=== PATIENT | male | born 2000 | race Caucasian/White ===

== ENCOUNTER 2020-06-15 16:17 | Emergency (ER) | payer MEDICAID ==
[~2020-06-15] VITALS: Ht 177.8 cm; Wt 79.5 kg
[2020-06-15] MEDS ORDERED: diphenhydrAMINE 50 mg/ml inj IV ONE (16:30)
[2020-06-15] MEDS ORDERED: normal saline 1000ML IV soln IVB STA (16:56)
[2020-06-15] MEDS ORDERED: EPIN0.3P3 IJ (16:59)
[2020-06-15] MEDS ORDERED: methylPREDNISolone sod succ 125mg/2ml vial IV ONE (17:00)
[2020-06-15] MEDS ORDERED: epiNEPHrine 1 mg/ml inj SQ ONE (17:00)
[2020-06-15] MEDS ORDERED: famotidine/PF 10 mg/ml inj IV ONE (17:00)
[2020-06-15 20:08] VITALS: BP 133/67
== END 2020-06-15 19:45 | disposition home or self-care (01) ==
LOC: ER 16:18
DX: T88.6XXA Anaphylactic reaction due to adverse effect of correct drug or medicament properly administered, initial encounter (principal); R51.9 Headache, unspecified; R22.0 Localized swelling, mass and lump, head; T39.315A Adverse effect of propionic acid derivatives, initial encounter; Z91.018 Allergy to other foods; Z88.8 Allergy status to other drugs, medicaments and biological substances; Z79.899 Other long term (current) drug therapy; Y92.89 Other specified places as the place of occurrence of the external cause
CPT/HCPCS: 96361; 96372; 96374; 96375; 99291; J0171; J1200; J2930; J3490; J7030

== ENCOUNTER 2022-08-01 22:53 | Emergency (ER) | payer MEDICAID ==
[~2022-08-01] VITALS: Ht 177.8 cm; Wt 86.4 kg
[~2022-08-01 22:53] MED LIST: EPIN0.3P3 IJ
[2022-08-02] MEDS ORDERED: SULF1TAB49 PO (03:44)
[2022-08-02] MEDS ORDERED: CEPH-585 PO (03:44)
[2022-08-02 03:50] VITALS: BP 136/83
== END 2022-08-02 03:53 | disposition home or self-care (01) ==
LOC: ER 22:53
DX: L73.9 Follicular disorder, unspecified (principal); T36.4X5A Adverse effect of tetracyclines, initial encounter; R11.0 Nausea; R06.02 Shortness of breath; Z88.6 Allergy status to analgesic agent; Z88.8 Allergy status to other drugs, medicaments and biological substances; Z79.2 Long term (current) use of antibiotics; Y92.89 Other specified places as the place of occurrence of the external cause
CPT/HCPCS: 99283